=== PATIENT | male | born 1965 | race Caucasian/White ===

== ENCOUNTER 2019-01-30 06:54 | Day surgery (SDC) | payer OTHER, BC ==
[2019-01-30] MEDS ORDERED: LIDOCAINE 100 MG SYRINGE (08:36)
[2019-01-30] MEDS ORDERED: PROPOFOL 40 ML (08:36)
== END 2019-01-30 11:36 | disposition home or self-care (01) ==
LOC: GIL 06:54
DX: Z12.11 Encounter for screening for malignant neoplasm of colon (principal); K64.8 Other hemorrhoids
CPT/HCPCS: 45378